=== PATIENT | female | born 2000 | race Caucasian/White ===

== ENCOUNTER 2024-07-14 08:26 | Outpatient (CLI) | payer BC, SELFPAY | END 2024-07-14 08:27 | disposition home or self-care (01) | PROVIDERS: PCP Physician Assistant Medical; Visit Provider Family Medicine | DX: Z83.49 Family history of other endocrine, nutritional and metabolic diseases (principal); Z13.29 Encounter for screening for other suspected endocrine disorder; Z13.220 Encounter for screening for lipoid disorders | CPT/HCPCS: 80061; 84439; 84443 ==